=== PATIENT | female | born 1970 | race Caucasian/White ===

== ENCOUNTER 2023-10-30 09:32 | Day surgery (SDC) | payer BC ==
[2023-10-30] MEDS ORDERED: LACTATED RINGERS 1,000 ML BAG ONE (11:40)
[2023-10-30] MEDS ORDERED: PROPOFOL 10 MG/ML 20 ML VIAL IV ONE (11:40)
--- NOTE | 2023-11-01 15:57 | OP ---
OPERATIVE REPORT DATE OF SERVICE : 10/30/2023 REQUESTING PHYSICIAN: Dr. Brennan BRIEF HISTORY: The patient is a 53-year-old pleasant white female scheduled for an elective colonoscopy as a part of screening for colorectal neoplasia. PROCEDURE PERFORMED: Colonoscopy. PREOPERATIVE DIAGNOSIS: Screening for colon cancer. ANESTHESIA: IV sedation per Anesthesia. DESCRIPTION OF PROCEDURE: After informed consent was obtained from the patient, she was brought into the endoscopy unit. IV conscious sedation was administered by Anesthesia under continuous monitor. Initial digital rectal examination was normal. The Olympus CF-180 video colonoscope was then inserted into the rectum and gradually advanced into the cecum. Careful examination was performed as the scope was gradually being withdrawn. The ileocecal valve and appendiceal orifice were visualized and appeared normal. The prep was excellent. Mucosa of the cecum, ascending colon, transverse colon, descending colon, sigmoid colon and rectum appeared normal. In the rectum, retroflexion was performed. No lesions were noted. The patient tolerated the procedure well. IMPRESSION: Normal-appearing colon from rectum to cecum with no evidence of colitis or colorectal neoplasia. RECOMMENDATION: Findings of this examination were discussed with the patient as well as the family. She was advised to have a repeat screening colonoscopy in 10 years. MMODL / IJN: [id number] /
== END 2023-10-30 12:32 ==
LOC: ORWHC2ENDO 09:32
PROVIDERS: ATTEND Internal Medicine Gastroenterology
DX: Z12.11 Encounter for screening for malignant neoplasm of colon (principal); E78.5 Hyperlipidemia, unspecified; E03.9 Hypothyroidism, unspecified; Z79.890 Hormone replacement therapy; Z79.899 Other long term (current) drug therapy
CPT/HCPCS: 45378; 81025